=== PATIENT | female | born 1960 | race Caucasian/White ===

== ENCOUNTER → 2016-07-25 09:35 | Outpatient (CLI) | payer MEDICAID ==
[2013-02-28 09:57] VITALS: BMI 35.0
[~2016-07-25 09:35] MED LIST: ASPIRIN 81 MG E81 MG PO; CORGARD20 MG PO; COZAAR50 MG PO; DEMEROL50 MG PO; ESTRACE 0.5 MG0.5 MG PO; NORCO 10/325 TA1 TA1 PO; PRILOSEC20 MG PO; VALIUM5 MG; XOPENEX HFA15 GM INH; ZANTAC150 MG PO
== END | disposition home or self-care (01) ==
LOC: D.CT 09:35
DX: R91.8 Other nonspecific abnormal finding of lung field (principal)

== ENCOUNTER → 2016-09-30 12:57 | Outpatient (CLI) | payer MEDICAID ==
[2013-02-28 09:57] VITALS: BMI 35.0
[2016-09-30 13:33] LABS: BASOPHILS 0.3 % (0.0-2.0); EOSINOPHILS 2.1 % (0-7); HEMATOCRIT 40.3 % (36.0-48.0); HEMOGLOBIN 13.6 g/dL (12-16); IMMATURE GRANULOCYTES 0.5 % (0-5); LYMPHOCYTES 28.6 % (15-50); MCH 30.6 pg (26.0-34.0); MCHC 33.7 g/dL (31.0-37.0); MCV 90.6 fL (80.0-100.0); MEAN PLATELET VOLUME 9.3 fL (7.4-10.4); MONOCYTES 4.1 % (2-11); NEUTROPHILS 64.4 % (40-80); PLATELET COUNT 224 10x3/uL (130-400); RBC 4.45 10x6/uL (4.00-5.40); RDW 12.8 % (11.5-14.5); WBC 7.5 10x3/uL (4.8-10.8)
[2016-10-01 13:20] LABS: IMMUNOGLOBULIN A 220 mg/dL (87-352); IMMUNOGLOBULIN G 904 mg/dL (700-1600); IMMUNOGLOBULIN M 70 mg/dL (26-217)
== END | disposition home or self-care (01) ==
LOC: D.LABREF 12:57
PROVIDERS: Student in an Organized Health Care Education/Training Program
DX: J47.9 Bronchiectasis, uncomplicated (principal)

== ENCOUNTER 2017-11-11 11:23 | Day surgery (SDC) | payer MEDICAID ==
[~2017-11-11] VITALS: Ht 165.1 cm; Wt 98.6 kg
--- NOTE | ~2017-11-11 | OP ---
PATIENT NAME: ELEUTERIO BILLY MEDICAL RECORD: [id number] :58 LOCATION:[facility] ADMISSION DATE: SURGEON: JUAN FELICIANO DO DATE OF OPERATION: 11/11/2017 PROCEDURE: Colonoscopy with biopsies. INDICATIONS FOR PROCEDURE: Right lower quadrant abdominal pain and change in bowel habits. SCOPE: Olympus video pediatric colonoscope. MEDICATIONS: Propofol 350 mg IV per anesthesia. WITHDRAWAL TIME: 8 minutes. ESTIMATED BLOOD LOSS: Minimal. COMPLICATIONS: None. FINDINGS: Informed consent was obtained. The patient was made comfortable with the above medication. After reaching an adequate level of sedation by slow IV push, the patient was placed on her left side. A digital rectal examination was performed and was normal. The endoscope was then advanced under direct visualization through the rectum to the terminal ileum. The endoscope was slowly withdrawn and mucosa was carefully examined. There were no polyps visualized on today's examination. There was evidence of mild diverticulosis in the sigmoid colon consisting of small mouth diverticula without evidence of diverticulitis. Random biopsies were performed throughout the normal appearing colon to rule out the presence of microscopic colitis. Retroflexion was performed in the rectum with a normal appearing rectal wall. The endoscope was then withdrawn from the patient. The patient tolerated the procedure well and there were no complications. IMPRESSION: 1. Mild diverticulosis of the sigmoid colon. 2. Irritable bowel syndrome by clinical history. PLAN AND RECOMMENDATIONS: 1. Discharge home when recovery parameters are met. 2. Follow up biopsy specimen results. 3. High fiber diet. 4. Consider supplementing diet with 1-2 tablespoons of psyllium husk fiber daily. 5. Okay to continue dicyclomine 20 mg up to 3 times daily as needed for abdominal pain or cramping or loose stools. 6. Recall colonoscopy in 7-10 years. TRANSINT:[id number] Voice Confirmation ID: [id number] DOCUMENT ID: [id number] OPERATIVE REPORT [id number] ELEUTERIO BILLY JUAN FELICIANO DO at 1651 CC: [id number] DICTATION DATE: 11/11/17 1401 HEALTH DATA ANALYST: 11/11/17 1518 [facility] 11/11/17 [id number] [place] [id number]
[2017-11-11] MEDS ORDERED: ASPIRIN325 MG PO (11:53)
[2017-11-11] MEDS ORDERED: ASCORBIC ACID500 MG PO (11:53)
[2017-11-11] MEDS ORDERED: CATAPRES0.1 MG PO (11:54)
[2017-11-11] MEDS ORDERED: FLUTICASONE PRO16 GM NASAL (11:55)
[2017-11-11] MEDS ORDERED: FISH OIL 1,2001 CAP PO (11:55)
[2017-11-11] MEDS ORDERED: ACETAMINOPHEN500 M1 PO (11:56)
[2017-11-11] MEDS ORDERED: IBUPROFEN200 MG PO (11:56)
[2017-11-11] MEDS ORDERED: COZAAR100 MG PO (11:57)
[2017-11-11] MEDS ORDERED: TOPROL XL50 MG PO (11:58)
[2017-11-11] MEDS ORDERED: CITRUCEL500 MG PO (11:59)
[2017-11-11 12:17] VITALS: BP 147/71; Ht 165.1 cm; Wt 98.6 kg
[2017-11-11 12:36] LABS: BASOPHILS 0.1 % (0-2); EOSINOPHILS 1.8 % (0-7); HEMATOCRIT 37.7 % (36.0-48.0); HEMOGLOBIN 12.8 g/dL (12-16); IMMATURE GRANULOCYTES 0.4 % (0-5); LYMPHOCYTES 28.3 % (15-50); MCH 29.8 pg (26.0-34.0); MCV 87.7 fL (80.0-100.0); MEAN PLATELET VOLUME 9.4 fL (7.4-10.4); MONOCYTES 3.7 % (2-11); NEUTROPHILS 65.7 % (40-80); PLATELET COUNT 211 10x3/uL (130-400); RDW 12.8 % (11.5-14.5); WBC 8.3 10x3/uL (4.8-10.8)
[2017-11-11 12:45] LABS: ANION GAP 12.4 mmol/L (8-16); CALCIUM 9.1 mg/dL (8.5-10.1); CARBON DIOXIDE 28.6 mmol/L (21.0-32.0); CREATININE - SERUM 0.9 mg/dL (0.6-1.3)
== END 2017-11-11 14:53 | disposition home or self-care (01) ==
LOC: D.OPS 11:23
PROVIDERS: Anesthesiology
DX: R10.31 Right lower quadrant pain (principal); R19.4 Change in bowel habit; J45.909 Unspecified asthma, uncomplicated; I10 Essential (primary) hypertension; K21.9 Gastro-esophageal reflux disease without esophagitis; G47.30 Sleep apnea, unspecified; Z01.812 Encounter for preprocedural laboratory examination; K58.9 Irritable bowel syndrome, unspecified; K57.30 Diverticulosis of large intestine without perforation or abscess without bleeding

== ENCOUNTER → 2018-01-04 19:12 | Outpatient (CLI) | payer MEDICAID ==
[2017-11-11 12:17] VITALS: BMI 36.1
[~2018-01-04 19:12] MED LIST changes: +ACETAMINOPHEN500 M1 PO; +ASCORBIC ACID500 MG PO; +ASPIRIN325 MG PO; +CATAPRES0.1 MG PO; +CITRUCEL500 MG PO; +COZAAR100 MG PO; +FISH OIL 1,2001 CAP PO; +FLUTICASONE PRO16 GM NASAL; +IBUPROFEN200 MG PO; +TOPROL XL50 MG PO
== END | disposition home or self-care (01) ==
LOC: D.SLEEP 12-15 20:00
DX: G47.33 Obstructive sleep apnea (adult) (pediatric) (principal)

== ENCOUNTER → 2018-01-12 19:28 | Outpatient (CLI) | payer MEDICAID ==
[2017-11-11 12:17] VITALS: BMI 36.1
== END | disposition home or self-care (01) ==
LOC: D.SLEEP 19:28
DX: G47.30 Sleep apnea, unspecified (principal)

== ENCOUNTER → 2019-11-15 07:59 | Outpatient (CLI) | payer MEDICAID ==
[2017-11-11 12:17] VITALS: BMI 36.1
--- NOTE | 2019-11-15 09:58 | NUR ---
TIME OUT PERFORMED AT 0840 FOR RIGHT SHOULDER ARTHROGRAM WITH CT BY OSBALDO HEATH(R) AND DR DALEY.
== END | disposition home or self-care (01) ==
LOC: D.RAD 07:59 → D.CT 09:30
PROVIDERS: ATTEND Family Medicine
DX: M25.511 Pain in right shoulder (principal)

== ENCOUNTER 2019-12-05 07:45 | Day surgery (SDC) | payer MEDICAID ==
[2019-12-01 15:02] LABS: HEMATOCRIT 36.6 % (36.0-48.0); MCH 29.7 pg (26.0-34.0); MCHC 32.8 g/dL (31.0-37.0); MCV 90.6 fL (80.0-100.0); MEAN PLATELET VOLUME 8.5 fL (7.4-10.4); RBC 4.04 10x6/uL (4.00-5.40); RDW 13.1 % (11.5-14.5); WBC 8.5 10x3/uL (4.8-10.8)
[2019-12-01 15:11] LABS: ANION GAP 8.5 mmol/L (8-16); CALCIUM 8.8 mg/dL (8.5-10.1); CARBON DIOXIDE 32.2 mmol/L (21.0-32.0); CREATININE - SERUM 1.1 mg/dL (0.6-1.3); POTASSIUM - SERUM 3.7 mmol/L (3.5-5.1)
[~2019-12-05] VITALS: Ht 165.1 cm; Wt 115.7 kg
--- NOTE | ~2019-12-05 | OP ---
PATIENT NAME: ELEUTERIO BILLY MEDICAL RECORD: [id number] :58 LOCATION:D.OPS ADMISSION DATE: SURGEON: ALE FRANK, ROBIN WORLEY DATE OF OPERATION: 12/05/2019 PREOPERATIVE DIAGNOSES: Impingement syndrome of the right shoulder with biceps tendinitis and adhesive capsulitis. POSTOPERATIVE DIAGNOSES: Impingement syndrome of the right shoulder with biceps tendinitis and adhesive capsulitis. PROCEDURES: 1. Right shoulder biceps tenotomy, arthroscopic. 2. Arthroscopic distal clavicle excision done through separate incision - 1 cm. 3. Arthroscopic subacromial decompression, acromioplasty and bursectomy. 4. Manipulation under anesthesia. SURGEON: Robin Rene MD ANESTHESIA: General. INTRAOPERATIVE COMPLICATIONS: None. SUMMARY OF PATHOLOGIC FINDINGS: The patient did have adhesive capsulitis requiring manipulation was also found to have impingement syndrome as well as severe biceps tendinitis. OPERATIVE SUMMARY IN DETAIL: After obtaining the appropriate preoperative orthopedic surgery consent as well as anesthetic consultation, evaluation and clearance the patient was brought to the operating room and placed on the operating table in supine position. After adequate general laryngeal mask was administered, the patient was placed in left lateral decubitus position. All pressure points were well padded to include down leg peroneal pad as well as axillary roll. The patient was held firmly to the operating using the vacuum pack suction system. Right upper extremity and shoulder were then prepped and draped in routine sterile fashion. The arm was held in the Arthrex traction boom at 30 degrees of forward flexion, 30 degrees of abduction with 10 pounds of traction laterally. At this point, appropriate timeout was taken and agreed upon by all given the patient's unique identifiers. Arthroscopy was established in the glenohumeral joint from the posterior portal. Anterior portal was established in the anterior safe interval under direct arthroscopic visualization. At this point, the biceps tendon was seen to have severe tendinopathic changes and substantial adhesive capsulitis was noted in the lower quadrant. The [place] tissue ablation system was utilized to release the biceps tendon at the bicipital labral junction. Arthroscopy was then removed. Traction was taken down and the shoulder was manipulated. After excellent release and manipulation of the shoulder arthroscopy was established in the glenohumeral space, please note that shoulder was manipulated first in abduction followed by external rotation, internal rotation, flexion and then extension. Again, arthroscopy was established in the subacromial space where the patient was noted to have excoriation of the coracoacromial ligament; however, mostly scar tissue and substantial bursitis were noted. Accessory lateral portal was created through which a coracoacromial ligament was released and the undersurface of the acromion was denuded of all soft tissue elements. A 5.0 barrel bur was then used to perform acromioplasty at the level of OPERATIVE REPORT [id number] WENCESLAOELEUTERIO SNIDER acromioclavicular joint and then under direct arthroscopic visualization, the distal clavicle was taken down for 1 cm using separate anterior arthroscopic portal. Having completed this, the resector was then utilized to remove all the residual bursa as well as adhesion tissue in the entire subacromial space. Having completed this, arthroscopy portals were closed in routine interrupted fashion using 4-0 Prolene. Sterile dressings were applied. The patient was awakened and taken to recovery room in stable condition. All final needle and sponge counts were correct. TRANSINT:[id number] Voice Confirmation ID: [id number] DOCUMENT ID: [id number] ALE FRANK, ROBIN WORLEY CC: [id number] DICTATION DATE: 12/16/19 1146 TILE GRADER: 12/16/19 1226 [facility] 12/05/19 [id number] [place] [address]
[~2019-12-05 07:45] MED LIST changes: +MAGNESIUM OXID500 MG PO; +VITAMIN D5000 UNI1 PO
[2019-12-05] MEDS ORDERED: CYCLOBENZAPRINE10 MG PO (08:01)
[2019-12-05 08:07] VITALS: BP 147/67; Ht 165.1 cm; Wt 115.7 kg
[2019-12-05] MEDS ORDERED: DILAUDID2 MG PO (11:30)
--- NOTE | 2019-12-05 14:34 | NUR ---
1350 PT SITTING ON SIDE OF BED AND TOLERATING CHANGE OF POSITITION. PT WAS CONCERNED DUE TO HAVING PROBLEMS WITH NAUSEA, VOMITING AND DIARRHEA WHEN SHE GOT TO LEAVE AFTER HER LAST SURGERY. IV DC'D. CATHETER TIP INTACT. NO BLEEDING AT SITE. BANDAID APPLIED. 1400 DR AGUILERA HERE TO SPEAK WITH PT AND HER ABOUT SURGERY AND POSTOP PT PLANS. DISCHARGE INSTRUCTIONS REVIEWED WITH PT AND HER . BOTH VOICE UNDERSTANDING OF THESE INSTRUCTIONS. 1407 PT VOIDED WITHOUT DIFFICULTY. SHE AMBULATED WTIH MINIMAL ASSISTANCE TO BR.
== END 2019-12-05 14:14 | disposition home or self-care (01) ==
LOC: D.OPS 07:45 → D.PAN 11:30 → D.OPS 14:14
PROVIDERS: Anesthesiology; ATTEND Orthopaedic Surgery
DX: M25.511 Pain in right shoulder (principal); M75.41 Impingement syndrome of right shoulder; M75.121 Complete rotator cuff tear or rupture of right shoulder, not specified as traumatic; M75.01 Adhesive capsulitis of right shoulder; I10 Essential (primary) hypertension; Z95.0 Presence of cardiac pacemaker; Z86.73 Personal history of transient ischemic attack (TIA), and cerebral infarction without residual deficits